=== PATIENT | male | born 1965 | race African-American/Black ===

== ENCOUNTER 2019-04-27 06:07 | Inpatient (IN) | payer OTHER ==
[~2019-04-27] VITALS: Ht 170.2 cm; Wt 111.1 kg
[2019-04-27 06:15] VITALS: BP 204/121
[2019-04-27 06:37] LABS: ABSOLUTE NEUTROPHILS 3.7 thou/uL (1.4-8.2); BASOPHILS 1.2 % (0.0-2.0); EOSINOPHILS 1.2 % (0.0-3.0); HEMATOCRIT 39.6 % (42.0-52.0); HEMOGLOBIN 13.2 gm/dL (14.0-18.0); LYMPHOCYTES 34.1 % (24.0-44.0); MCH 29.2 pg (26.0-34.0); MCHC 33.2 g/dL (28.0-37.0); MONOCYTES 9.6 % (1.0-8.0); PLATELET COUNT 251 thou/uL (150-400); POLYS 53.9 % (36.0-66.0); RDW 14.4 % (10.5-14.5); WBC 6.9 thou/uL (4.0-11.0)
[2019-04-27 06:44] LABS: CALCIUM 8.5 mg/dL (8.5-10.1); CREATININE 1.2 mg/dL (0.7-1.3); POTASSIUM 3.5 mmol/L (3.5-5.1)
--- NOTE | 2019-04-27 08:48 | EKG ---
[place] [address] [facility] [employer] [place] [address] ELECTROCARDIOGRAM REPORT Name: AWAIS ZUNIGA YU Room #: [facility] [id number] Admission: 04/27/19 Attend Phys: Discharge: Date of : 67 Report #: [id number] THIS REPORT FOR: //name// [facility] ED Test Date: 2019-04-27 Test Time: 06:38:51 Pat Name: AWAIS ZUNIGA Department: Room: Gender: M Wedding Photographer: : 1965 Requested By: Ludwin Willams Order Number: [id number] MD: Ernie Hollins Measurements Intervals [place] Rate: 93 P: -6 SC: 147 QRS: -8 QRSD: 86 T: 29 QT: 350 QTc: 436 Interpretive Statements Sinus rhythm Abnormal R-wave progression, early transition No previous ECG available for comparison Electronically Signed On 04-27-2019 8:48:11 CDT by Ernie Hollins [email or web address] <ELECTRONICALLY SIGNED> By: Ernie oHllins MD, [facility] 04/27/19 0848 0638 0638 Ernie Hollins MD, FACC /EPI
[2019-04-27 11:58] LABS: ALBUMIN 3.7 g/dL (3.4-5.0); DIRECT BILIRUBIN 0.1 mg/dL (<0.1-0.3); TOTAL BILIRUBIN 0.8 mg/dL (<0.1-1.0); TOTAL PROTEIN 7.8 g/dL (6.4-8.2)
[2019-04-27 17:42] VITALS: BP 165/80
[2019-04-27 17:44] VITALS: BP 165/80
[2019-04-27] MEDS ORDERED: AMLODIPINE BESY10 MG PO (18:42)
[2019-04-27] MEDS ORDERED: OLMESARTAN-HCT1 EAC2 PO (18:43)
--- NOTE | 2019-04-27 19:33 | NUR ---
ASSUMED CARE AT 1820, SHIFT ASSESSMENT DONE, ALLERGIES AND MED REC DONE. ADMISSON DONE BY THE ED NURSE. PROTONIX DRIP REOREDERED PER TELEPHONE ORDER FROM DR MATT. ON CLEAR LIQUID DIET, NPO AT MISNIGHT. WILL CONTINUE TO ASSESS AND ASSIST WITH ADLs NEEDED.
[2019-04-27 20:00] VITALS: BP 175/103
[2019-04-27 20:00] LABS: HEMATOCRIT 34.3 % (42.0-52.0); HEMOGLOBIN 11.6 gm/dL (14.0-18.0)
[2019-04-27 20:46] VITALS: BP 161/99
[2019-04-27 22:30] VITALS: BP 141/71
[2019-04-28 00:11] VITALS: BP 153/77
[2019-04-28 03:38] VITALS: BP 166/80
[2019-04-28 05:05] LABS: HEMATOCRIT 32.6 % (42.0-52.0); HEMOGLOBIN 10.9 gm/dL (14.0-18.0); MCH 29.2 pg (26.0-34.0); MCHC 33.3 g/dL (28.0-37.0); MCV 87.6 fL (80.0-100.0); RBC 3.72 mil/uL (4.50-6.00); RDW 14.3 % (10.5-14.5); WBC 9.1 thou/uL (4.0-11.0)
--- NOTE | 2019-04-28 05:20 | NUR ---
SHIFT NOTE: PATIENT ALERT AND ORIENTED AND ABLE TO COMMUNICATE NEEDS. COMPLAINT OF MILD HEADACHE THAT RESOLVED WITH RELAXATION. CONCERN WITH BLOOD PRESSURE AND TREATMENT PER THE ORDER WITH EFFECT. LEAD PROGRAMMER ANALYST SOFT MUD MOLDER FOR HOSPITALIST PAGED FOR CLARIFICATION WITH RATE OF FLUID INFUSION AND ORDER TO REDUCE THE RATE TO 50ML/HR. CONSENT FOR SCHEDULED PROCEDURE SIGNED AN IN THE CHART. NO OTHER MAJOR CONCERN OR COMPLAINT. HOURLY ROUNDING. CALL LIGHT AND PERSONAL ITEMS WITHIN REACH. WILL CONTINUE WITH CURRENT PLAN OF CARE AND TO MONITOR.
[2019-04-28 09:30] VITALS: BP 170/84
[2019-04-28 12:00] VITALS: BP 186/88
[2019-04-28 16:00] VITALS: BP 166/81
--- NOTE | 2019-04-28 17:48 | NUR ---
ASSUMMED PT CARE AT APPROXIMATELY 0700. PT A&O X4. ASSESSMENT CHARTED. FALL PRECAUTIONS IN PLACE. PT DENIES CHEST PAIN. PT DENIES HAVING SOB. PT STATED HE HAD A HEADACHE. PT RECEIVED ANALGESICS. PT STATED ANALGESICS HELPED RELIEVE PAIN. PT AND FAMILY EDUCATED ABOUT POC. PT AND FAMILY STATED UNDERSTANDING AND DENIED HAVING FURTHER QUESTIONS. CONSENT SIGNED FOR COLONOSCOPY TOMORROW. PT COMFORTABLE IN BED. PT DENIES HAVING FURTHER CONCERNS. PT BP ELEVATED IN AM. PT RECEIVED PRN BP MED. BP DECREASED. VITAL SIGNS STABLE. PT HAD ONE BM TODAY. BM HAD A SMALL AMOUNT OF BRIGHT RED BLOOD IN BM. NOTIFIED. STATED TO CONTINUE MONITORING. INFORMED THAT EGD SHOWED NO SIGNS OF MELANA. STATED TO DC PPI IV DRIP. PPI IV DRIP STOPPED.
[2019-04-28 17:54] LABS: CALCIUM 8.7 mg/dL (8.5-10.1); CREATININE 1.3 mg/dL (0.7-1.3); POTASSIUM 3.1 mmol/L (3.5-5.1)
[2019-04-28 21:16] VITALS: BP 148/88
--- NOTE | 2019-04-29 04:10 | NUR ---
Assumed care 1900. pt alert and oriented. colonoscopy scheduled today. pt was npo since midnight. Golytely completed. pt passing clear stool,with bright red tinged blood. Denies chest pain, nausea or vomiting. no further c/o. vitals stable will continue to monitor.
[2019-04-29 04:14] VITALS: BP 159/73
[2019-04-29 07:27] VITALS: BP 145/91
[2019-04-29 08:03] LABS: HEMATOCRIT 30.6 % (42.0-52.0); HEMOGLOBIN 10.2 gm/dL (14.0-18.0)
[2019-04-29 08:08] LABS: CALCIUM 8.4 mg/dL (8.5-10.1); CREATININE 1.2 mg/dL (0.7-1.3)
[2019-04-29 14:19] VITALS: BP 145/91
[2019-04-29] MEDS ORDERED: PROTONIX40 M1 PO ×2 (14:33→16:31)
[2019-04-29] MEDS ORDERED: SPIRONOLACTONE25 M1 PO ×2 (14:33→16:31)
[2019-04-29 16:00] VITALS: BP 137/85
[2019-04-29 16:19] VITALS: BP 145/91
[2019-04-29] MEDS ORDERED: OLMESARTAN-HCT1 EAC2 PO (16:31)
[2019-04-29] MEDS ORDERED: AMLODIPINE BESY10 MG PO (16:31)
--- NOTE | 2019-04-29 16:42 | NUR ---
ASSUMED CARE PT AT SHIFT CHANGE. ASSESSMENTS CHARTED. MEDS GIVEN PER AUG. PT ALERT AND ORIENTED, FAMILY AT BEDSIDE THROUGHOUT SHIFT. PT HAD COLONOSCOPY THIS SHIFT--SEE RESULTS. PT DID NOT HAVE ANY MORE BLOODY STOOLS THIS SHIFT. POTASSIUM LOW- AT 3.0-- REPLACED PER ORDERS. O2 SATS WNL ON ROOM AIR. DC ORDERS ACKNOWLEDGED AND IMPLEMENTED. DC PAPERWORK DISCUSSED WITH PT. COMMUNICATES UNDERSTANDING. DENIES CONCERN. PT LEFT UNIT AT APPROX 1640 WITH ALL BELONGINGS. IV REMOVED. TELE REMOVED.
--- NOTE | 2019-05-02 17:06 | PATH ---
[facility] [address] [place] [address] PATHOLOGY RPT PROCEDURE Name: AWAIS ZUNIGA YU Room #: 217-P DIS IN M.R.#: [id number] Admission: 04/27/19 Date of : 67 Discharge: 04/29/19 Report #: [id number] Path Case #: [id number] [facility] Accession Number: [id number] . 01 Material submitted: . stomach - ANTRUM NODULE . 01 Clinical history: . Melena, antral nodule, gastritis . 02 Diagnosis: Gastric mucosa, antrum nodule, endoscopic biopsy: - Polypoid mucosal fragment showing features of moderate reactive gastropathy. - Negative for intestinal metaplasia, atrophy or dysplasia. - Negative for Helicobacter pylori (properly controlled immunohistochemical stain performed). . ([facility]; 05/02/2019) QMS 05/02/2019 1244 Local . 02 Electronically signed: . Misty Flowers MD, Pathologist NPI- [id number] . 01 Gross description: . The specimen is received in formalin, labeled "Zuniga, Awais, antrum nodule", are two irregular segments of bangura soft tissue measuring 0.2 and 0.3 cm in greatest dimension. H. pylori stains ordered. Entirely submitted in A1. ([facility]; 05/01/2019) [facility] 05/01/2019 1800 Local . 02 Pathologist provided ICD-10: K31.9 . 02 CPT . 057584, [id number] Specimen Comment: A courtesy copy of this report has been sent to [phone] Specimen Comment: Report sent to Performed at: [address], [place] [id number] MD Carl Barth MD Phone: [phone] Performed at: [address], [place] [id number] MD Misty Flowers MD Phone: [phone]
== END 2019-04-29 16:40 | disposition home or self-care (01) | DRG 378 ==
LOC: ER 06:07 → EROBS 18:55 → 2N 18:55
PROVIDERS: Emergency Medicine; Nurse Practitioner; ADMIT Hospitalist
PROC: 0DB68ZX Excision of Stomach, Via Natural or Artificial Opening Endoscopic, Diagnostic (ICD-10-PCS; principal; 2019-04-28)
PROC: 0DJD8ZZ Inspection of Lower Intestinal Tract, Via Natural or Artificial Opening Endoscopic (ICD-10-PCS; 2019-04-29)
DX: K57.31 Diverticulosis of large intestine without perforation or abscess with bleeding (principal); D62 Acute posthemorrhagic anemia; K29.70 Gastritis, unspecified, without bleeding; I16.0 Hypertensive urgency; I10 Essential (primary) hypertension; E78.00 Pure hypercholesterolemia, unspecified; R00.0 Tachycardia, unspecified; E78.5 Hyperlipidemia, unspecified; K44.9 Diaphragmatic hernia without obstruction or gangrene; K31.89 Other diseases of stomach and duodenum; K64.8 Other hemorrhoids; K29.80 Duodenitis without bleeding; Z79.899 Other long term (current) drug therapy; Z91.14 Patient's other noncompliance with medication regimen
CPT/HCPCS: 10081; 62110; 62900; 70005

== ENCOUNTER 2020-05-23 10:32 | Inpatient (IN) | payer OTHER ==
[~2020-05-23] VITALS: Ht 170.2 cm; Wt 87.5 kg
[~2020-05-23 10:32] MED LIST: AMLODIPINE BESY10 MG PO; OLMESARTAN-HCT1 EAC2 PO; PROTONIX40 M1 PO; SPIRONOLACTONE25 M1 PO
[2020-05-23 10:33] VITALS: BP 126/80
[2020-05-23 11:37] LABS: BASOPHILS 0.6 % (0.0-2.0); HEMATOCRIT 42.4 % (42.0-52.0); HEMOGLOBIN 14.3 gm/dL (14.0-18.0); LYMPHOCYTES 5.7 % (24.0-44.0); MCH 29.5 pg (26.0-34.0); MCHC 33.7 g/dL (28.0-37.0); MCV 87.5 fL (80.0-100.0); MONOCYTES 7.9 % (1.0-8.0); PLATELET COUNT 159 thou/uL (150-400); POLYS 85.8 % (36.0-66.0); RBC 4.85 mil/uL (4.50-6.00); RDW 14.5 % (10.5-14.5)
[2020-05-23 11:50] LABS: ANION GAP 10 mmol/L (7-16); BUN 18 mg/dL (7-18); CALCIUM 8.5 mg/dL (8.5-10.1); CHLORIDE 95 mmol/L (98-107); CO2 29 mmol/L (21-32); CREATININE 1.9 mg/dL (0.7-1.3); GLUCOSE 138 mg/dL (74-106); POTASSIUM 3.2 mmol/L (3.5-5.1); SODIUM 134 mmol/L (136-145)
[2020-05-23 11:59] LABS: TROPONIN-I <0.06 ng/mL (<0.06)
[2020-05-23 12:17] LABS: BE(vivo) 0.9 mmol/L (-2 to +3); HCO3 24.4 mmol/L (22.0-26.0); PCO2 35.5 mmHg (35.0-45.0); PO2 69.4 mmHg (80.0-100.0); pH 7.455 (7.360-7.450); sO2 94.8 % (92.0-98.0)
[2020-05-23 13:26] VITALS: BP 138/79
[2020-05-23 16:10] VITALS: BP 140/74
[2020-05-23 16:29] VITALS: BP 137/75
--- NOTE | 2020-05-23 17:43 | NUR ---
PATIENT ADMIT TO UNIT AT 1620. A/O X4. ON 4L. UP AD BUD. WILL KEEP MONITOR.
[2020-05-23 19:37] LABS: ALBUMIN 3.6 g/dL (3.4-5.0); DIRECT BILIRUBIN 0.2 mg/dL (<0.1-0.2); SGOT 40 U/L (15-37); SGPT 23 U/L (30-65); TOTAL BILIRUBIN 0.9 mg/dL (0.2-1.0); TOTAL PROTEIN 8.8 g/dL (6.4-8.2)
[2020-05-23 22:09] VITALS: BP 140/71
--- NOTE | 2020-05-24 01:16 | NUR ---
PT HAD QUESTIONS ABOUT CONVALESCENT PLASMA. DISCUSSED OPTIONS AND PT STATES DUE TO ZOROASTRIANISM BELIEFS HE DOES NOT WANT TO RECEIVE IT. REFUSAL IS IN PT CHART UNDER CONSENTS.
[2020-05-24 04:58] VITALS: BP 130/73
[2020-05-24 06:06] LABS: BASOPHILS 0.2 % (0.0-2.0); HEMATOCRIT 41.2 % (42.0-52.0); HEMOGLOBIN 13.9 gm/dL (14.0-18.0); LYMPHOCYTES 8.3 % (24.0-44.0); MCH 29.6 pg (26.0-34.0); MCHC 33.6 g/dL (28.0-37.0); MCV 88.1 fL (80.0-100.0); PLATELET COUNT 182 thou/uL (150-400); POLYS 86.5 % (36.0-66.0); RBC 4.68 mil/uL (4.50-6.00); RDW 14.5 % (10.5-14.5); WBC 4.6 thou/uL (4.0-11.0)
[2020-05-24 06:23] LABS: ALBUMIN 3.1 g/dL (3.4-5.0); CALCIUM 8.1 mg/dL (8.5-10.1); CREATININE 1.6 mg/dL (0.7-1.3); DIRECT BILIRUBIN 0.2 mg/dL (<0.1-0.2); POTASSIUM 3.5 mmol/L (3.5-5.1); TOTAL BILIRUBIN 0.6 mg/dL (0.2-1.0); TOTAL PROTEIN 8.1 g/dL (6.4-8.2)
[2020-05-24 08:02] VITALS: BP 126/67
--- NOTE | 2020-05-24 15:04 | NUR ---
ASSUMED CARE OF PT AT 0700. PT AOX4 IN NO ACUTE DISTRESS. ON 4L NC - SOA W/ ACTIVITY. UP AD BUD. PRODUCTIVE COUGH. CALLS APPROPRIATELY. VITALS STABLE. REFUSING CONVALESCENT PLASMA.
[2020-05-24 17:07] VITALS: BP 131/65
[2020-05-24 20:04] VITALS: BP 135/83
[2020-05-25 03:10] LABS: CALCIUM 7.8 mg/dL (8.5-10.1); CREATININE 1.6 mg/dL (0.7-1.3); POTASSIUM 3.6 mmol/L (3.5-5.1)
[2020-05-25 03:15] LABS: CREATININE 1.5 mg/dL (0.7-1.3); DIRECT BILIRUBIN 0.1 mg/dL (<0.1-0.2); TOTAL BILIRUBIN 0.5 mg/dL (0.2-1.0); TOTAL PROTEIN 7.7 g/dL (6.4-8.2)
[2020-05-25 05:28] VITALS: BP 116/64
--- NOTE | 2020-05-25 06:09 | NUR ---
Pt. stated he slept well during the night. His cannula slid off his nose while asleep , he got up to use the bathroom and realize that his O2 is off. He reported a little shortness of breath but not too bad. O2 sat in the low 90's then. Encouraged use of IS and able to get it up to 1250. O2 sat up in the mid 90's. Also reported he has loose cough with clear , thick sputum and at times a liittle bit of blood tinged eulalio. when he first wake up in am. Up ad noa in room with steady gait.
[2020-05-25 07:42] VITALS: BP 103/57
[2020-05-25 15:38] VITALS: BP 116/65
[2020-05-25 19:36] VITALS: BP 129/73
--- NOTE | 2020-05-25 19:44 | NUR ---
RN ASSUMED PT'S CARE AT 0700AM, PT IS A&OX3, PT IS CONTINUING IV ABX , PT 'S VS ARE STABLE, PT STILL HAS COUGHING , PT GETS UP TO BATH ROOM BY HIMSELF.
[2020-05-26 05:16] VITALS: BP 124/72
[2020-05-26 05:27] LABS: ALBUMIN 2.9 g/dL (3.4-5.0); CREATININE 1.4 mg/dL (0.7-1.3); DIRECT BILIRUBIN 0.1 mg/dL (<0.1-0.2); TOTAL BILIRUBIN 0.4 mg/dL (0.2-1.0); TOTAL PROTEIN 7.7 g/dL (6.4-8.2)
[2020-05-26 08:30] VITALS: BP 139/76
[2020-05-26 15:58] VITALS: BP 143/79
--- NOTE | 2020-05-26 20:13 | NUR ---
RN ASSUMED PT'S CARE AT 0700AM, PT IS A&OX3, PT IS CONTINUING IV ABX AND O2 , PT'S VS ARE STABLE AT DAY SHIFT.
[2020-05-26 20:35] VITALS: BP 145/75
[2020-05-27 05:44] LABS: ABSOLUTE NEUTROPHILS 11.5 thou/uL (1.4-8.2); BASOPHILS 0.2 % (0.0-2.0); HEMATOCRIT 40.6 % (42.0-52.0); HEMOGLOBIN 13.4 gm/dL (14.0-18.0); LYMPHOCYTES 3.9 % (24.0-44.0); MONOCYTES 6.5 % (1.0-8.0); POLYS 89.4 % (36.0-66.0); RBC 4.62 mil/uL (4.50-6.00); RDW 14.5 % (10.5-14.5); WBC 12.9 thou/uL (4.0-11.0)
[2020-05-27 05:54] VITALS: BP 140/70
[2020-05-27 06:09] LABS: PLATELET COUNT 298 thou/uL (150-400)
[2020-05-27 06:24] LABS: ALBUMIN 2.7 g/dL (3.4-5.0); ANION GAP 8 mmol/L (7-16); BUN 18 mg/dL (7-18); CALCIUM 8.2 mg/dL (8.5-10.1); CHLORIDE 102 mmol/L (98-107); CO2 29 mmol/L (21-32); CREATININE 1.4 mg/dL (0.7-1.3); DIRECT BILIRUBIN < 0.1 mg/dL (<0.1-0.2); GLUCOSE 200 mg/dL (74-106); POTASSIUM 3.6 mmol/L (3.5-5.1); SGOT 27 U/L (15-37); SGPT 33 U/L (30-65); SODIUM 139 mmol/L (136-145); TOTAL BILIRUBIN 0.4 mg/dL (0.2-1.0); TOTAL PROTEIN 7.3 g/dL (6.4-8.2)
--- NOTE | 2020-05-27 06:53 | NUR ---
Pt. slept fair during the night. Maintaining O2 sat in the low 90's on 2L/NC. Still gets short of breath with exertion but a lot better per pt. Cont. on enhanced precaution , afebrile. Making progress towards care plan goals.
--- NOTE | 2020-05-27 07:26 | EKG ---
[facility] [address] [place] [address] ELECTROCARDIOGRAM REPORT Name: AWAIS ZUNIGA Room #: 364-P ADM IN M.R.#: [id number] Admission: 05/23/20 Attend Phys: Eric Caballero MD Discharge: Date of : 67 Report #: [id number] THIS REPORT FOR: cc: ELIJAH - Chel family physician/PCP ELIJAH - No family physician/PCP Daryl Garrett MD [facility] ~ THIS REPORT FOR: //name// [facility] ED Test Date: 2020-05-23 Test Time: 11:14:47 Pat Name: AWAIS ZUNIGA Department: Room: 364 Gender: M Fibre Optics Jointer: lee : 1965 Requested By: Ludwin Willams Order Number: [id number] MD: Daryl Garrett Measurements Intervals [place] Rate: 109 P: 7 OR: 158 QRS: -10 QRSD: 88 T: -9 QT: 315 QTc: 425 Interpretive Statements Sinus tachycardia Compared to ECG 04/27/2019 06:38:51 Sinus rhythm no longer present Electronically Signed On 05-27-2020 7:26:04 SCHOOL HEALTH ASSISTANT by Daryl Garrett [email or web address] <ELECTRONICALLY SIGNED> By: Daryl Garrett MD, FACC 05/27/20 0726 1114 1114 Daryl Garrett MD, [facility] /EPI
[2020-05-27 09:30] VITALS: BP 149/83
[2020-05-27] MEDS ORDERED: ZITHROMAX250 MG PO (12:03)
[2020-05-27] MEDS ORDERED: PREDNISONE 10 M10 M1 PO (12:03)
[2020-05-27] MEDS ORDERED: OXYGEN MISCELL (12:04)
[2020-05-27 13:38] VITALS: BP 149/83
--- NOTE | 2020-05-27 13:40 | NUR ---
INITIAL ASSESSMENT/DISCHARGE NOTE: SW reviewed chart and spoke with nursing and attending physician. Pt was admitted from home due to hypoxia. Pt placed in Enhanced Isolation due to positive COVID-19 test. Pt is medically stable for discharge home today. Pt to finish course of Remdesivir today. SW spoke with pt via phone. Introduced role of SW. Pt is alert/orientated x 4 and reports he lives at home with his . Prior to admission, pt was independent with ADLs. SW discussed need for possible home O2. Pt states that RT said he would need 4L of O2. SW discussed process for getting home O2 ordered and delivered. Pt verbalized understanding. SW provided options for DME companies. No preference voiced. SW faxed face sheet and clinical info to [facility] of review. Notified [facility] liaison of new referral. Portable O2 tank delivered to the nurses station. Awaiting documentation of rest/exercise oximetry and script for O2. Pt's family will have transportation home. Contact info for [facility] placed in pt's discharge summary. No additional SW needs identified at this time, but is available to assist should needs arise.
[2020-05-27 15:47] VITALS: BP 140/70
--- NOTE | 2020-05-27 17:18 | NUR ---
PT DISCHARGED, ALL BELONGINGS SENT WITH THE PT, PT UNDERSTANDS THE DISCHARGE INSTRUCTIONS PER TEACH BACK FROM THE PT. PT LEFT WITH [employer] ON THE WHEELCHAIR WITH THE OXYGEN TANK THAT WAS PROVIDED PER . NO ISSUES AT THIS TIME. VITAL SIGNS WERE STABLE. PT ATE THE LAST MEAL HERE PRIOR TO DC. HIS DAUGHTER IS WAITING AT THE ER AT THIS TIME TO PACKING SHED SUPERVISOR THE PT. RN SIGNING OFF
== END 2020-05-27 17:34 | disposition home or self-care (01) | DRG 871 ==
LOC: ER 10:32 → EROBS 13:19 → 3W 13:19
PROVIDERS: Emergency Medicine; Specialist; ADMIT Hospitalist; ATTEND Hospitalist
PROC: XW033E5 Introduction of Remdesivir Anti-infective into Peripheral Vein, Percutaneous Approach, New Technology Group 5 (ICD-10-PCS; principal; 2020-05-23)
DX: A41.9 Sepsis, unspecified organism (principal); U07.1 COVID-19; J96.01 Acute respiratory failure with hypoxia; J12.89 Other viral pneumonia; N17.0 Acute kidney failure with tubular necrosis; E78.5 Hyperlipidemia, unspecified; I10 Essential (primary) hypertension; E78.00 Pure hypercholesterolemia, unspecified; Z79.899 Other long term (current) drug therapy
CPT/HCPCS: 10879

== ENCOUNTER 2020-07-06 10:07 | Emergency (ER) | payer OTHER ==
[~2020-07-06] VITALS: Ht 170.2 cm; Wt 111.1 kg
[~2020-07-06 10:07] MED LIST changes: +OXYGEN MISCELL; +PREDNISONE 10 M10 M1 PO; +ZITHROMAX250 MG PO
[2020-07-06 10:47] LABS: ABSOLUTE NEUTROPHILS 2.8 thou/uL (1.4-8.2); BASOPHILS 0.9 % (0.0-2.0); HEMATOCRIT 42.9 % (42.0-52.0); HEMOGLOBIN 14.4 gm/dL (14.0-18.0); LYMPHOCYTES 30.4 % (24.0-44.0); MCH 29.7 pg (26.0-34.0); MCHC 33.6 g/dL (28.0-37.0); MCV 88.3 fL (80.0-100.0); MONOCYTES 12.7 % (1.0-8.0); PLATELET COUNT 292 thou/uL (150-400); RBC 4.86 mil/uL (4.50-6.00); RDW 14.9 % (10.5-14.5); WBC 5.1 thou/uL (4.0-11.0)
[2020-07-06 10:55] LABS: CALCIUM 9.2 mg/dL (8.5-10.1); CREATININE 1.4 mg/dL (0.7-1.3)
[2020-07-06 10:56] LABS: APTT 25.5 Seconds (24.5-32.8); INR 1.1
[2020-07-06 12:20] VITALS: BP 121/82
--- NOTE | 2020-07-08 07:29 | EKG ---
[place] [address] [facility] [place] [address] ELECTROCARDIOGRAM REPORT Name: AWAIS ZUNIGA YU [facility] [id number] Admission: 07/06/20 Attend Phys: Discharge: 07/06/20 Date of : 67 Report #: [id number] [facility] ED Test Date: 2020-07-06 Test Time: 10:11:51 Pat Name: AWAIS ZUNIGA Department: Room: Gender: Fire Ranger: JCHAIBRIE : 1965 Requested By: Jose Manuel Brumfield Order Number: [id number] MD: Ernie Hollins Measurements Intervals [place] Rate: 135 P: [place]: QRS: -7 QRSD: 74 T: -58 QT: 331 QTc: 497 Interpretive Statements Atrial fibrillation Nonspecific ST and T wave abnormality Compared to ECG 05/23/2020 11:14:47 Atrial fibrillation has replaced sinus tachycardia Electronically Signed On 07-08-2020 7:29:02 DRY KILN LOADER by Ernie Hollins [email or web address] <ELECTRONICALLY SIGNED> By: Ernie Hollins MD, [facility] 07/08/20 0729 1011 1011 Ernie Hollins MD, FACC /EPI
--- NOTE | 2020-07-08 07:30 | EKG ---
[address] [place] [address] ELECTROCARDIOGRAM REPORT Name: AWAIS ZUNIGA YU Room #: DEP [facility] [id number] Admission: 07/06/20 Attend Phys: Discharge: 07/06/20 Date of : 67 Report #: [id number] [facility] ED Test Date: 2020-07-06 Test Time: 10:56:59 Pat Name: AWAIS ZUNIGA Department: Room: Gender: Factorer: JCHAIBALBIRZ : 1965 Requested By: Jose Manuel Brumfield Order Number: [id number] MD: Ernie Hollins Measurements Intervals [place] Rate: 102 P: 47 [place]: 181 QRS: 1 QRSD: 85 T: 7 QT: 320 QTc: 417 Interpretive Statements Sinus tachycardia Borderline T wave abnormalities Compared to ECG 05/23/2020 11:14:47 Atrial fibrillation is no longer present Electronically Signed On 07-08-2020 7:30:15 DISPATCH MACHINE RUNNER by Ernie Hollins [email or web address] <ELECTRONICALLY SIGNED> By: Ernie Hollins MD, [facility] 07/08/20 0730 1056 1056 Ernie Hollins MD, FACC /EPI
== END 2020-07-06 12:20 | disposition home or self-care (01) ==
LOC: ER 10:07
PROVIDERS: Emergency Medicine
DX: I48.0 Paroxysmal atrial fibrillation (principal); I10 Essential (primary) hypertension; E78.5 Hyperlipidemia, unspecified; Z79.899 Other long term (current) drug therapy

== ENCOUNTER → 2020-07-11 | Outpatient (CLI) | payer OTHER | LOC: SJCVCIMAG 06:43 | PROVIDERS: ATTEND Internal Medicine Cardiovascular Disease | DX: R94.31 Abnormal electrocardiogram [ECG] [EKG] (principal); I48.91 Unspecified atrial fibrillation; U07.1 COVID-19; I10 Essential (primary) hypertension; I34.1 Nonrheumatic mitral (valve) prolapse; I34.0 Nonrheumatic mitral (valve) insufficiency; E78.00 Pure hypercholesterolemia, unspecified; D68.59 Other primary thrombophilia ==

== ENCOUNTER 2020-09-10 01:43 | Emergency (ER) | payer OTHER ==
[~2020-09-10] VITALS: Ht 170.2 cm; Wt 112.0 kg
[2020-09-10] MEDS ORDERED: POTASSIUM20 PO (02:06)
[2020-09-10] MEDS ORDERED: DILTIAZEM 24HR240 M1 PO (02:07)
[2020-09-10] MEDS ORDERED: ZETIA10 MG PO (02:07)
[2020-09-10] MEDS ORDERED: XARELTO10 MG PO (02:08)
[2020-09-10 02:28] LABS: ABSOLUTE NEUTROPHILS 3.1 thou/uL (1.4-8.2); BASOPHILS 1.2 % (0.0-2.0); EOSINOPHILS 1.9 % (0.0-3.0); HEMOGLOBIN 13.6 gm/dL (14.0-18.0); LYMPHOCYTES 28.1 % (24.0-44.0); MCH 28.6 pg (26.0-34.0); MCHC 32.3 g/dL (28.0-37.0); MCV 88.6 fL (80.0-100.0); MONOCYTES 10.1 % (1.0-8.0); PLATELET COUNT 270 thou/uL (150-400); POLYS 58.7 % (36.0-66.0); RBC 4.74 mil/uL (4.50-6.00); RDW 14.5 % (10.5-14.5); WBC 5.2 thou/uL (4.0-11.0)
[2020-09-10 02:29] LABS: CALCIUM 8.8 mg/dL (8.5-10.1); CREATININE 1.5 mg/dL (0.7-1.3); POTASSIUM 3.3 mmol/L (3.5-5.1)
[2020-09-10 05:05] VITALS: BP 147/84
--- NOTE | 2020-09-10 07:19 | EKG ---
[place] [address] [place] [address] ELECTROCARDIOGRAM REPORT Name: AWAIS ZUNIGA YU Room #: [facility] [id number] Admission: 09/10/20 Attend Phys: Discharge: 09/10/20 Date of : 67 Report #: [id number] [facility] ED Test Date: 2020-09-10 Test Time: 01:46:46 Pat Name: AWAIS ZUNIGA Department: Room: Gender: M Immunologist: REJI : 1965 Requested By: Orlando Baker Order Number: [id number] MD: Daryl Garrett Measurements Intervals [place] Rate: 82 P: 0 OR: 164 QRS: 3 QRSD: 90 T: -24 QT: 370 QTc: 432 Interpretive Statements Sinus rhythm LAE, consider biatrial enlargement RSR' in V1 or V2, probably normal variant Borderline T abnormalities, inferior leads Baseline wander in lead(s) II,III,aVL,aVF,V4 Compared to ECG 07/06/2020 10:56:59 RSR' in V1 or V2 now present Sinus tachycardia no longer present T-wave abnormality still present Electronically Signed On 09-10-2020 7:19:05 CDT by Daryl Garrett [email or web address] <ELECTRONICALLY SIGNED> By: Daryl Garrett MD, FACC 09/10/20 0719 5 014 Daryl Garrett MD, [facility] /EPI
--- NOTE | 2020-09-10 07:20 | EKG ---
[place] [address] [facility] [employer] [place] [address] ELECTROCARDIOGRAM REPORT Name: AWAIS ZUNIGA YU [facility]: [facility] [id number] Admission: 09/10/20 Attend Phys: Discharge: 09/10/20 Date of : 67 Report #: [id number] [facility] ED Test Date: 2020-09-10 Test Time: 03:46:40 Pat Name: AWAIS ZUNIGA Department: Room: Gender: M Corporate Concierge: MARKY : 1965 Requested By: Orlando Baker Order Number: [id number] MD: Daryl Garrett Measurements Intervals [place] Rate: 71 P: 31 KS: 212 QRS: 2 QRSD: 90 T: 20 QT: 403 QTc: 438 Interpretive Statements Sinus rhythm Prolonged [place] interval RSR' in V1 or V2, probably normal variant Compared to ECG 07/06/2020 10:56:59 First degree AV block now present RSR' in V1 or V2 now present ST (T wave) deviation now present Sinus tachycardia no longer present T-wave abnormality no longer present Electronically Signed On 09-10-2020 7:20:02 CDT by Daryl Garrett [email or web address] <ELECTRONICALLY SIGNED> By: Daryl Garrett MD, FACC 09/10/20 0720 0346 0346 Daryl Garrett MD, [facility] /EPI
== END 2020-09-10 05:06 | disposition home or self-care (01) ==
LOC: ER 01:43
PROVIDERS: Emergency Medicine
DX: I48.0 Paroxysmal atrial fibrillation (principal); I10 Essential (primary) hypertension; E78.5 Hyperlipidemia, unspecified; Z79.899 Other long term (current) drug therapy

== ENCOUNTER 2020-12-06 14:03 | Emergency (ER) | payer OTHER ==
[~2020-12-06] VITALS: Ht 170.2 cm; Wt 104.3 kg
[~2020-12-06 14:03] MED LIST changes: +DILTIAZEM 24HR240 M1 PO; +POTASSIUM20 PO; +XARELTO10 MG PO; +ZETIA10 MG PO
[2020-12-06 15:05] LABS: ABSOLUTE NEUTROPHILS 2.6 thou/uL (1.4-8.2); BASOPHILS 1.3 % (0.0-2.0); EOSINOPHILS 1.5 % (0.0-3.0); HEMATOCRIT 36.5 % (42.0-52.0); HEMOGLOBIN 12.4 gm/dL (14.0-18.0); LYMPHOCYTES 27.1 % (24.0-44.0); MCH 29.4 pg (26.0-34.0); MCHC 33.9 g/dL (28.0-37.0); MCV 86.7 fL (80.0-100.0); MONOCYTES 12.1 % (1.0-8.0); PLATELET COUNT 274 thou/uL (150-400); RBC 4.21 mil/uL (4.50-6.00); RDW 14.5 % (10.5-14.5); WBC 4.6 thou/uL (4.0-11.0)
[2020-12-06 15:06] LABS: ANION GAP 8 mmol/L (7-16); BUN 17 mg/dL (7-18); CHLORIDE 102 mmol/L (98-107); CO2 30 mmol/L (21-32); CREATININE 1.8 mg/dL (0.7-1.3); GLUCOSE 164 mg/dL (74-106); POTASSIUM 3.1 mmol/L (3.5-5.1); SODIUM 140 mmol/L (136-145)
[2020-12-06 15:16] LABS: ALBUMIN 3.7 g/dL (3.4-5.0); LIPASE 152 U/L (73-393); SGOT 19 U/L (15-37); SGPT 31 U/L (16-63); TOTAL BILIRUBIN 0.8 mg/dL (0.2-1.0); TOTAL PROTEIN 7.5 g/dL (6.4-8.2); TROPONIN-I <0.06 ng/mL (<0.06)
[2020-12-06] MEDS ORDERED: PREVACID30 MG PO (15:46)
--- NOTE | 2020-12-06 15:55 | EKG ---
[address] [place] [address] ELECTROCARDIOGRAM REPORT Name: AWAIS ZUNIGA YU Room #: REG [facility] [id number] Admission: 12/06/20 Attend Phys: Discharge: Date of : 67 Report #: [id number] [facility] ED Test Date: 2020-12-06 Test Time: 14:05:39 Pat Name: AWAIS ZUNIGA Department: Room: Gender: M Revenue Cycle Analyst: REJI : 1965 Requested By: Regan Randolph Order Number: [id number] MD: Daryl Garrett Measurements Intervals [place] Rate: 90 P: 31 [place]: 121 QRS: 8 QRSD: 87 T: 19 QT: 334 QTc: 409 Interpretive Statements Sinus rhythm Abnormal R-wave progression, early transition Compared to ECG 09/10/2020 03:46:40 First degree AV block no longer present Electronically Signed On 12-06-2020 15:54:48 CDT by Daryl Garrett [email or web address] <ELECTRONICALLY SIGNED> By: Daryl Garrett MD, [facility] 12/06/20 1554 1405 1405 Daryl Garrett MD, FACC /EPI
[2020-12-06 16:41] VITALS: BP 148/77
== END 2020-12-06 16:42 | disposition home or self-care (01) ==
LOC: ER 14:03
PROVIDERS: Emergency Medicine
DX: R07.89 Other chest pain (principal); R06.02 Shortness of breath; R42 Dizziness and giddiness; I48.91 Unspecified atrial fibrillation; I10 Essential (primary) hypertension; E78.00 Pure hypercholesterolemia, unspecified

== ENCOUNTER 2021-06-14 18:06 | Emergency (ER) | payer OTHER ==
[~2021-06-14] VITALS: Ht 170.2 cm; Wt 111.1 kg
[~2021-06-14 18:06] MED LIST changes: +PREVACID30 MG PO
[2021-06-14 18:53] LABS: BASOPHILS 1.2 % (0.0-2.0); EOSINOPHILS 1.7 % (0.0-3.0); HEMATOCRIT 46.7 % (42.0-52.0); HEMOGLOBIN 15.7 gm/dL (14.0-18.0); LYMPHOCYTES 26.4 % (24.0-44.0); MCH 28.7 pg (26.0-34.0); MCHC 33.6 g/dL (28.0-37.0); MCV 85.5 fL (80.0-100.0); MONOCYTES 11.9 % (1.0-8.0); PLATELET COUNT 235 thou/uL (150-400); POLYS 58.8 % (36.0-66.0); RBC 5.46 mil/uL (4.50-6.00); RDW 15.2 % (10.5-14.5); WBC 5.1 thou/uL (4.0-11.0)
[2021-06-14 18:58] LABS: CALCIUM 8.9 mg/dL (8.5-10.1); CREATININE 1.3 mg/dL (0.7-1.3); POTASSIUM 3.2 mmol/L (3.5-5.1)
[2021-06-14 19:08] LABS: ALBUMIN 3.8 g/dL (3.4-5.0); TOTAL BILIRUBIN 1.1 mg/dL (0.2-1.0)
[2021-06-14 21:26] VITALS: BP 145/88
--- NOTE | 2021-06-16 07:12 | EKG ---
[place] [address] [place] [address] ELECTROCARDIOGRAM REPORT Name: ANDRES ZUNIGAPAMELA NICHOLAS Room #: [facility] [id number] Admission: 06/14/21 Attend Phys: Discharge: 06/14/21 Date of : 67 Report #: [id number] [facility] ED Test Date: 2021-06-14 Test Time: 18:27:27 Pat Name: AWAIS ZUNIGA Department: Room: Gender: M Assistant Controller: VICKI : 1965 Requested By: Shari Wang Order Number: [id number] MD: Daryl Garrett Measurements Intervals [place] Rate: 57 P: 32 [place]: 184 QRS: -20 QRSD: 88 T: 4 QT: 424 QTc: 413 Interpretive Statements Sinus rhythm Borderline left axis deviation RSR' in V1 or V2, probably normal variant Compared to ECG 12/06/2020 14:05:39 RSR' in V1 or V2 now present Electronically Signed On 06-16-2021 7:12:39 SKEET OPERATOR by Daryl Garrett [email or web address] <ELECTRONICALLY SIGNED> By: Daryl Garrett MD, [facility] 06/16/21 0712 26 26 Daryl Garrett MD, [facility] /EPI
== END 2021-06-14 21:27 | disposition home or self-care (01) ==
LOC: ER 18:06
PROVIDERS: Emergency Medicine
DX: I10 Essential (primary) hypertension (principal); E78.00 Pure hypercholesterolemia, unspecified; Z79.899 Other long term (current) drug therapy